=== PATIENT | female | born 1975 | race African-American/Black ===

== ENCOUNTER 2017-01-12 20:33 | Emergency (ER) | payer OTHER, MEDICAID ==
[~2017-01-12] VITALS: Ht 152.4 cm; Wt 129.1 kg
[~2017-01-12 20:33] MED LIST: AMLO-512 PO; GLIP5 PO; HYDR25TA PO; METF500T PO
[2017-01-12] MEDS ORDERED: ASPI81TA42 PO (20:44)
[2017-01-12] MEDS ORDERED: HYDROCODONE/ACETAMINOPHEN 5-325 MG TABLET PO ONE (23:00)
[2017-01-12] MEDS ORDERED: KETOROLAC TROMETHAMINE 60 MG/2 ML VIAL IM ONE (23:00)
[2017-01-12] MEDS ORDERED: CYCLOBENZAPRINE HCL 10 MG TABLET PO ONE (23:00)
[2017-01-12 23:08] VITALS: BP 144/83
== END 2017-01-12 23:17 | disposition home or self-care (01) ==
LOC: EMS 20:37
DX: S83.91XA Sprain of unspecified site of right knee, initial encounter (principal); E11.9 Type 2 diabetes mellitus without complications; I10 Essential (primary) hypertension; Z79.82 Long term (current) use of aspirin; W19.XXXA Unspecified fall, initial encounter; Y93.89 Activity, other specified; Y92.89 Other specified places as the place of occurrence of the external cause; Y99.8 Other external cause status
CPT/HCPCS: 29505; 73562; 96372; 99284; J1885

== ENCOUNTER → 2017-03-17 | Outpatient (CLI) | payer OTHER, MEDICAID ==
[~2017-03-17] MED LIST changes: +ASPI81TA42 PO; +GADOBUTROL 1 MMOL/ML 10 ML VIAL IVP ONE; -METF500T PO
== END | disposition home or self-care (01) ==
LOC: RADMN 08:42
PROVIDERS: ATTEND Family Medicine
DX: R42 Dizziness and giddiness (principal); R51 Headache
CPT/HCPCS: 70549; 70553; A9585

== ENCOUNTER 2017-03-27 17:20 | Emergency (ER) | payer OTHER, MEDICAID ==
[~2017-03-27] VITALS: Ht 154.9 cm; Wt 90.9 kg
[~2017-03-27 17:20] MED LIST changes: -GADOBUTROL 1 MMOL/ML 10 ML VIAL IVP ONE
[2017-03-27 17:32] LABS: GLUCOSE,POINT OF CARE 147 MG/DL (70-110)
[2017-03-27] MEDS ORDERED: METF10002 PO (17:49)
[2017-03-27 18:06] LABS: ANION GAP 9 mmol/L (8-16); BASOPHILS % (AUTO) 0.6 % (0.0-2.0); CALCIUM, TOTAL 9.1 mg/dL (8.8-10.5); CARBON DIOXIDE 29 mmol/L (22-29); CHLORIDE 102 mmol/L (98-107); CREATININE 0.58 mg/dL (0.60-1.30); EOSINOPHILS % (AUTO) 1.1 % (1.0-6.0); GLOMERULAR FILTR. RATE CALC > 60 mL/min (>60); HEMATOCRIT 42.6 % (36-46); HEMOGLOBIN 13.6 g/dL (12.0-16.0); LYMPHOCYTES # (AUTO) 4.8 K/uL (1.0-4.8); MEAN CORPUSCULAR HEMOGLOBIN 28.1 pg (26.0-34.0); MEAN CORPUSCULAR HGB CONC 31.9 G/dL (31.0-37.0); MEAN CORPUSCULAR VOLUME 88 fL (80-100); MONOCYTES # (AUTO) 0.7 K/uL (0.1-1.0); MONOCYTES % (AUTO) 7.1 % (2.0-9.0); NEUTROPHILS # (AUTO) 4.3 K/uL (1.8-7.7); NEUTROPHILS % (AUTO) 43.2 % (40.0-70.0); PLATELET COUNT (AUTO) 355 K/uL (150-450); POTASSIUM 3.7 mmol/L (3.5-5.1); RED BLOOD CELL COUNT(AUTO) 4.83 MIL/uL (4.00-5.20); RED CELL DISTRIBUTION WIDTH 13.1 % (11.5-14.5); SODIUM SERUM 140 mmol/L (136-145); UREA NITROGEN, BLOOD 8 mg/dL (7-18)
[2017-03-27 18:12] LABS: ALANINE AMINOTRANSFERASE 26 U/L (12-78); ALBUMIN 3.6 g/dL (3.4-5.0); ASPARTATE AMINOTRANSFERASE 11 U/L (15-37); BILIRUBIN,TOTAL 0.3 mg/dL (0.1-1.0); TOTAL PROTEIN, SERUM 7.6 g/dL (6.4-8.2)
[2017-03-27 19:20] LABS: ADD UA MICROSCOPIC NO; APPEARANCE,URINE CLEAR (CLEAR); GLUCOSE, URINE (UA) NEGATIVE (NEGATIVE); KETONES,URINE NEGATIVE (NEGATIVE); LEUKOCYTE ESTERASE ,URINE NEGATIVE (NEGATIVE); OCCULT BLOOD,URINE NEGATIVE (NEGATIVE); PH,URINE 5.5 (5.0-8.0); PROTEIN,URINE NEGATIVE (NEGATIVE)
[2017-03-27] MEDS ORDERED: KETOROLAC TROMETHAMINE 30 MG/ML VIAL IVP ONE (19:45)
[2017-03-27] MEDS ORDERED: ONDANSETRON HCL 4 MG/2 ML VIAL IVP ONE (19:45)
[2017-03-27] MEDS ORDERED: MORPHINE SULFATE 4 MG/ML SYRINGE IVP ONE (19:45)
[2017-03-27] MEDS ORDERED: HYDROmorphone 2 MG/ML SYRINGE IVP ONE (21:30)
[2017-03-27 22:16] VITALS: BP 140/92
== END 2017-03-27 22:19 | disposition home or self-care (01) ==
LOC: EMS 17:21
DX: N83.201 Unspecified ovarian cyst, right side (principal); I10 Essential (primary) hypertension; E11.9 Type 2 diabetes mellitus without complications
CPT/HCPCS: 36415; 76856; 80053; 81003; 82962; 83690; 85025; 96374; 96375; 99285; J1170; J1885; J2270; J2405

== ENCOUNTER 2017-05-22 19:05 | Emergency (ER) | payer OTHER, MEDICAID ==
[~2017-05-22] VITALS: Ht 152.4 cm; Wt 83.6 kg
[~2017-05-22 19:05] MED LIST changes: +METF10002 PO
[2017-05-22] MEDS ORDERED: KETOROLAC TROMETHAMINE 30 MG/ML VIAL IVP ONE (22:15)
[2017-05-22] MEDS ORDERED: HYDROmorphone 2 MG/ML SYRINGE IVP ONE (22:15)
[2017-05-22] MEDS ORDERED: ONDANSETRON HCL 4 MG/2 ML VIAL IVP ONE (22:15)
[2017-05-22 22:38] LABS: BASOPHILS % (AUTO) 0.2 % (0.0-2.0); EOSINOPHILS % (AUTO) 0.6 % (1.0-6.0); HEMATOCRIT 40.9 % (36-46); HEMOGLOBIN 13.6 g/dL (12.0-16.0); LYMPHOCYTES # (AUTO) 3.3 K/uL (1.0-4.8); LYMPHOCYTES % (AUTO) 32.8 % (22.0-44.0); MEAN CORPUSCULAR HEMOGLOBIN 29.1 pg (26.0-34.0); MEAN CORPUSCULAR HGB CONC 33.3 G/dL (31.0-37.0); MEAN CORPUSCULAR VOLUME 87 fL (80-100); MONOCYTES # (AUTO) 0.2 K/uL (0.1-1.0); NEUTROPHILS # (AUTO) 6.5 K/uL (1.8-7.7); NEUTROPHILS % (AUTO) 64.4 % (40.0-70.0); PLATELET COUNT (AUTO) 366 K/uL (150-450); RED BLOOD CELL COUNT(AUTO) 4.68 MIL/uL (4.00-5.20); RED CELL DISTRIBUTION WIDTH 13.4 % (11.5-14.5); WHITE BLOOD COUNT (AUTO) 10.1 K/uL (4.5-11.0)
[2017-05-22 22:51] LABS: ANION GAP 8 mmol/L (8-16); CALCIUM, TOTAL 8.7 mg/dL (8.8-10.5); CARBON DIOXIDE 28 mmol/L (22-29); CHLORIDE 100 mmol/L (98-107); CREATININE 0.78 mg/dL (0.60-1.30); GLOMERULAR FILTR. RATE CALC > 60 mL/min (>60); POTASSIUM 3.7 mmol/L (3.5-5.1); SODIUM SERUM 136 mmol/L (136-145); UREA NITROGEN, BLOOD 9 mg/dL (7-18)
[2017-05-23 00:01] VITALS: BP 166/113
== END 2017-05-23 01:16 | disposition home or self-care (01) ==
LOC: EMS 19:07
DX: N83.201 Unspecified ovarian cyst, right side (principal); E11.65 Type 2 diabetes mellitus with hyperglycemia; I10 Essential (primary) hypertension; G43.909 Migraine, unspecified, not intractable, without status migrainosus; Z87.442 Personal history of urinary calculi; Z90.710 Acquired absence of both cervix and uterus
CPT/HCPCS: 36415; 76856; 80048; 84703; 85025; 96374; 96375; 99285; J1170; J1885; J2405

== ENCOUNTER 2017-06-22 21:31 | Emergency (ER) | payer OTHER, MEDICAID ==
[~2017-06-22] VITALS: Ht 157.5 cm; Wt 814.0 kg
[~2017-06-22 21:31] MED LIST changes: -AMLO-512 PO; -ASPI81TA42 PO; -GLIP5 PO; -HYDR25TA PO
[2017-06-22] MEDS ORDERED: MORPHINE SULFATE 4 MG/ML SYRINGE IVP ONE (22:15)
[2017-06-22] MEDS ORDERED: SODIUM CHLORIDE 0.9% 1,000 ML IV ONE (22:15)
[2017-06-22] MEDS ORDERED: ONDANSETRON HCL 4 MG/2 ML VIAL IVP ONE (22:15)
[2017-06-22 22:41] LABS: BASOPHILS % (AUTO) 0.6 % (0.0-2.0); EOSINOPHILS % (AUTO) 0.4 % (1.0-6.0); HEMATOCRIT 39.9 % (36-46); HEMOGLOBIN 13.5 g/dL (12.0-16.0); LYMPHOCYTES # (AUTO) 3.9 K/uL (1.0-4.8); LYMPHOCYTES % (AUTO) 45.6 % (22.0-44.0); MEAN CORPUSCULAR HEMOGLOBIN 29.4 pg (26.0-34.0); MEAN CORPUSCULAR HGB CONC 33.9 G/dL (31.0-37.0); MEAN CORPUSCULAR VOLUME 87 fL (80-100); MONOCYTES # (AUTO) 0.8 K/uL (0.1-1.0); MONOCYTES % (AUTO) 9.8 % (2.0-9.0); NEUTROPHILS # (AUTO) 3.7 K/uL (1.8-7.7); NEUTROPHILS % (AUTO) 43.6 % (40.0-70.0); PLATELET COUNT (AUTO) 340 K/uL (150-450); RED CELL DISTRIBUTION WIDTH 13.7 % (11.5-14.5); WHITE BLOOD COUNT (AUTO) 8.6 K/uL (4.5-11.0)
[2017-06-22 22:51] LABS: ANION GAP 9 mmol/L (8-16); CARBON DIOXIDE 27 mmol/L (22-29); CHLORIDE 102 mmol/L (98-107); CREATININE 0.78 mg/dL (0.60-1.30); GLOMERULAR FILTR. RATE CALC > 60 mL/min (>60); POTASSIUM 3.3 mmol/L (3.5-5.1); SODIUM SERUM 138 mmol/L (136-145); UREA NITROGEN, BLOOD 7 mg/dL (7-18)
[2017-06-22 22:57] LABS: ALANINE AMINOTRANSFERASE 21 U/L (12-78); ALBUMIN 3.4 g/dL (3.4-5.0); ASPARTATE AMINOTRANSFERASE 11 U/L (15-37); BILIRUBIN,TOTAL 0.4 mg/dL (0.1-1.0); TOTAL PROTEIN, SERUM 7.1 g/dL (6.4-8.2)
[2017-06-23 00:24] LABS: APPEARANCE,URINE CLEAR (CLEAR); GLUCOSE, URINE (UA) >=1000 mg/dL (NEGATIVE); KETONES,URINE NEGATIVE (NEGATIVE); LEUKOCYTE ESTERASE ,URINE NEGATIVE (NEGATIVE); OCCULT BLOOD,URINE NEGATIVE (NEGATIVE); PROTEIN,URINE NEGATIVE (NEGATIVE)
[2017-06-23] MEDS ORDERED: MORPHINE SULFATE 4 MG/ML SYRINGE IVP ONE (00:45)
[2017-06-23 00:47] LABS: RBC,URINE 0-2 /HPF (0-2); SQUAMOUS EPITHELIAL CELL,UR Few /LPF (None Seen); WBC,URINE 0-2 /HPF (0-5)
[2017-06-23 00:49] VITALS: BP 132/71
== END 2017-06-23 01:01 | disposition home or self-care (01) ==
LOC: EMS 21:33
DX: N83.201 Unspecified ovarian cyst, right side (principal); N83.202 Unspecified ovarian cyst, left side; N70.11 Chronic salpingitis; I10 Essential (primary) hypertension; E11.9 Type 2 diabetes mellitus without complications; G43.909 Migraine, unspecified, not intractable, without status migrainosus
CPT/HCPCS: 36415; 76856; 80053; 81001; 85025; 96361; 96374; 96375; 96376; 99285; J2270 ×2; J2405; J7030

== ENCOUNTER 2017-07-27 17:41 | Emergency (ER) | payer OTHER, MEDICAID ==
[~2017-07-27] VITALS: Ht 152.4 cm; Wt 85.9 kg
[2017-07-27] MEDS ORDERED: htn PO (17:48)
[2017-07-27] MEDS ORDERED: MORPHINE SULFATE 4 MG/ML SYRINGE IVP ONE ×2 (18:45→20:30)
[2017-07-27 19:17] LABS: BASOPHILS % (AUTO) 0.4 % (0.0-2.0); EOSINOPHILS % (AUTO) 0.8 % (1.0-6.0); HEMATOCRIT 41.6 % (36-46); HEMOGLOBIN 13.9 g/dL (12.0-16.0); LYMPHOCYTES # (AUTO) 3.6 K/uL (1.0-4.8); LYMPHOCYTES % (AUTO) 44.3 % (22.0-44.0); MEAN CORPUSCULAR HEMOGLOBIN 29.3 pg (26.0-34.0); MEAN CORPUSCULAR HGB CONC 33.4 G/dL (31.0-37.0); MEAN CORPUSCULAR VOLUME 88 fL (80-100); MONOCYTES # (AUTO) 0.7 K/uL (0.1-1.0); MONOCYTES % (AUTO) 9.1 % (2.0-9.0); NEUTROPHILS # (AUTO) 3.7 K/uL (1.8-7.7); NEUTROPHILS % (AUTO) 45.4 % (40.0-70.0); PLATELET COUNT (AUTO) 319 K/uL (150-450); RED BLOOD CELL COUNT(AUTO) 4.74 MIL/uL (4.00-5.20); WHITE BLOOD COUNT (AUTO) 8.2 K/uL (4.5-11.0)
[2017-07-27 19:29] LABS: ANION GAP 9 mmol/L (8-16); CALCIUM, TOTAL 9.1 mg/dL (8.8-10.5); CARBON DIOXIDE 26 mmol/L (22-29); CHLORIDE 103 mmol/L (98-107); CREATININE 0.66 mg/dL (0.60-1.30); GLOMERULAR FILTR. RATE CALC > 60 mL/min (>60); SODIUM SERUM 138 mmol/L (136-145); UREA NITROGEN, BLOOD 9 mg/dL (7-18)
[2017-07-27 19:46] LABS: ALANINE AMINOTRANSFERASE 21 U/L (12-78); ALBUMIN 3.6 g/dL (3.4-5.0); ASPARTATE AMINOTRANSFERASE 10 U/L (15-37); BILIRUBIN,TOTAL 0.2 mg/dL (0.1-1.0); TOTAL PROTEIN, SERUM 7.3 g/dL (6.4-8.2)
[2017-07-27] MEDS ORDERED: ONDANSETRON HCL 4 MG/2 ML VIAL ONE (20:45)
[2017-07-27] MEDS ORDERED: ONDANSETRON HCL 4 MG/2 ML VIAL IVP ONE (20:45)
[2017-07-27 21:10] VITALS: BP 154/109
== END 2017-07-27 21:58 | disposition home or self-care (01) ==
LOC: EMS 17:44
DX: N83.209 Unspecified ovarian cyst, unspecified side (principal); E11.9 Type 2 diabetes mellitus without complications; I10 Essential (primary) hypertension; G43.909 Migraine, unspecified, not intractable, without status migrainosus; Z87.442 Personal history of urinary calculi
CPT/HCPCS: 36415; 76856; 80053; 83690; 84702; 85025; 96374; 96375; 96376; 99285; J2270; J2405

== ENCOUNTER 2018-01-22 18:57 | Emergency (ER) | payer OTHER, MEDICAID ==
[~2018-01-22] VITALS: Ht 152.4 cm; Wt 82.7 kg
[~2018-01-22 18:57] MED LIST changes: +htn PO
[2018-01-22] MEDS ORDERED: HYDR25TA PO (19:16)
[2018-01-22] MEDS ORDERED: FLUCONAZOLE 150 MG TABLET PO ONE (20:45)
[2018-01-22 21:52] VITALS: BP 144/89
== END 2018-01-22 21:55 | disposition home or self-care (01) ==
LOC: EMS 19:04
DX: B37.3 Candidiasis of vulva and vagina (principal); E11.9 Type 2 diabetes mellitus without complications; I10 Essential (primary) hypertension; G43.909 Migraine, unspecified, not intractable, without status migrainosus; Z87.442 Personal history of urinary calculi; Z90.710 Acquired absence of both cervix and uterus
CPT/HCPCS: 99283

== ENCOUNTER 2018-02-15 19:58 | Emergency (ER) | payer OTHER, MEDICAID ==
[~2018-02-15] VITALS: Ht 157.5 cm; Wt 80.0 kg
[~2018-02-15 19:58] MED LIST changes: +HYDR25TA PO; -METF10002 PO; -htn PO
[2018-02-15] MEDS ORDERED: OMEP10 PO (20:36)
[2018-02-15 21:06] LABS: APPEARANCE,URINE CLEAR (CLEAR); GLUCOSE, URINE (UA) 500 mg/dL (NEGATIVE); KETONES,URINE TRACE mg/dL (NEGATIVE); LEUKOCYTE ESTERASE ,URINE NEGATIVE (NEGATIVE); NITRATE,URINE NEGATIVE (NEGATIVE); OCCULT BLOOD,URINE NEGATIVE (NEGATIVE); PH,URINE 6.5 (5.0-8.0); PROTEIN,URINE TRACE (NEGATIVE)
[2018-02-15 21:10] LABS: BILIRUBIN,URINE PRELIM. POSITIVE (NEGATIVE)
[2018-02-15 21:12] LABS: BACTERIA,URINE Rare /HPF (None Seen); MUCUS,URINE Moderate LPF (None Seen); RBC,URINE None Seen /HPF (0-2); SQUAMOUS EPITHELIAL CELL,UR Many /LPF (None Seen); WBC,URINE 0-2 /HPF (0-5)
[2018-02-15 21:17] LABS: BASOPHILS % (AUTO) 1.1 % (0.0-2.0); EOSINOPHILS % (AUTO) 0.8 % (1.0-6.0); HEMATOCRIT 40.3 % (36-46); HEMOGLOBIN 13.9 g/dL (12.0-16.0); LYMPHOCYTES # (AUTO) 4.6 K/uL (1.0-4.8); LYMPHOCYTES % (AUTO) 49.8 % (22.0-44.0); MEAN CORPUSCULAR HEMOGLOBIN 29.5 pg (26.0-34.0); MEAN CORPUSCULAR HGB CONC 34.5 G/dL (31.0-37.0); MEAN CORPUSCULAR VOLUME 86 fL (80-100); MONOCYTES # (AUTO) 0.7 K/uL (0.1-1.0); NEUTROPHILS # (AUTO) 3.7 K/uL (1.8-7.7); NEUTROPHILS % (AUTO) 40.3 % (40.0-70.0); PLATELET COUNT (AUTO) 312 K/uL (150-450); RED BLOOD CELL COUNT(AUTO) 4.71 MIL/uL (4.00-5.20); RED CELL DISTRIBUTION WIDTH 13.2 % (11.5-14.5)
[2018-02-15] MEDS ORDERED: ONDANSETRON HCL 4 MG/2 ML VIAL IVP ONE (21:30)
[2018-02-15] MEDS ORDERED: KETOROLAC TROMETHAMINE 30 MG/ML VIAL IVP ONE (21:30)
[2018-02-15 21:57] LABS: ANION GAP 12 mmol/L (8-16); CALCIUM, TOTAL 8.9 mg/dL (8.8-10.5); CARBON DIOXIDE 27 mmol/L (22-29); CHLORIDE 100 mmol/L (98-107); CREATININE 0.69 mg/dL (0.60-1.30); GLOMERULAR FILTR. RATE CALC > 60 mL/min (>60); GLUCOSE,RANDOM 261 mg/dL (70-110); SODIUM SERUM 139 mmol/L (136-145); UREA NITROGEN, BLOOD 8 mg/dL (7-18)
[2018-02-15 22:04] LABS: ALANINE AMINOTRANSFERASE 17 U/L (12-78); ALBUMIN 3.4 g/dL (3.4-5.0); ALKALINE PHOSPHATASE 106 U/L (46-116); ASPARTATE AMINOTRANSFERASE 8 U/L (15-37); BILIRUBIN,TOTAL 0.3 mg/dL (0.1-1.0); LIPASE 97 U/L (73-393); TOTAL PROTEIN, SERUM 7.3 g/dL (6.4-8.2)
[2018-02-15] MEDS ORDERED: FentaNYL CITRATE-PF 100 MCG/2 ML VIAL IM ONE (22:15)
[2018-02-15] MEDS ORDERED: POTASSIUM CHLORIDE 20 MEQ ER TABLET PO ONE (22:15)
[2018-02-15 22:25] VITALS: BP 144/90
== END 2018-02-15 22:33 | disposition home or self-care (01) ==
LOC: EMS 20:00
DX: M54.5 Low back pain (principal); E87.6 Hypokalemia; E11.9 Type 2 diabetes mellitus without complications; I10 Essential (primary) hypertension; G43.909 Migraine, unspecified, not intractable, without status migrainosus; N83.209 Unspecified ovarian cyst, unspecified side; Z87.442 Personal history of urinary calculi
CPT/HCPCS: 36415; 80053; 81001; 83690; 84703; 85025; 96372; 96374; 96375; 99284; J1885; J2405; J3010

== ENCOUNTER 2018-04-17 03:04 | Emergency (ER) | payer OTHER, MEDICAID ==
[~2018-04-17] VITALS: Ht 157.5 cm; Wt 78.9 kg
[~2018-04-17 03:04] MED LIST changes: +OMEP10 PO
[2018-04-17] MEDS ORDERED: GLIP5 PO (03:13)
[2018-04-17 04:35] LABS: APPEARANCE,URINE SLIGHTLY CLOUDY (CLEAR); BILIRUBIN,URINE NEGATIVE (NEGATIVE); GLUCOSE, URINE (UA) >=1000 mg/dL (NEGATIVE); KETONES,URINE NEGATIVE (NEGATIVE); LEUKOCYTE ESTERASE ,URINE NEGATIVE (NEGATIVE); NITRATE,URINE POSITIVE (NEGATIVE); OCCULT BLOOD,URINE LARGE (NEGATIVE); PH,URINE 5.5 (5.0-8.0); PROTEIN,URINE SEE CONFIRM (NEGATIVE); UROBILINOGEN,URINE 0.2 mg/dL (<=1.0)
[2018-04-17 04:42] LABS: SULFOSALICYLIC ACID,URINE 1+ (Negative)
[2018-04-17 04:44] LABS: BACTERIA,URINE Few /HPF (None Seen); RBC,URINE 51-100 /HPF (0-2)
[2018-04-17 04:45] LABS: SQUAMOUS EPITHELIAL CELL,UR Few /LPF (None Seen)
[2018-04-17 06:15] LABS: BASOPHILS % (AUTO) 1.1 % (0.0-2.0); EOSINOPHILS % (AUTO) 0.7 % (1.0-6.0); HEMATOCRIT 39.6 % (36-46); HEMOGLOBIN 13.6 g/dL (12.0-16.0); LYMPHOCYTES # (AUTO) 3.8 K/uL (1.0-4.8); LYMPHOCYTES % (AUTO) 36.8 % (22.0-44.0); MEAN CORPUSCULAR HEMOGLOBIN 29.6 pg (26.0-34.0); MEAN CORPUSCULAR HGB CONC 34.4 G/dL (31.0-37.0); MEAN CORPUSCULAR VOLUME 86 fL (80-100); MONOCYTES # (AUTO) 0.8 K/uL (0.1-1.0); MONOCYTES % (AUTO) 7.7 % (2.0-9.0); NEUTROPHILS # (AUTO) 5.6 K/uL (1.8-7.7); NEUTROPHILS % (AUTO) 53.7 % (40.0-70.0); PLATELET COUNT (AUTO) 315 K/uL (150-450); RED BLOOD CELL COUNT(AUTO) 4.61 MIL/uL (4.00-5.20); RED CELL DISTRIBUTION WIDTH 12.8 % (11.5-14.5)
[2018-04-17] MEDS ORDERED: KETOROLAC TROMETHAMINE 60 MG/2 ML VIAL IM ONE (06:15)
[2018-04-17] MEDS ORDERED: PHENAZOPYRIDINE HCL 100 MG TABLET PO ONE (06:15)
[2018-04-17 06:24] LABS: ANION GAP 11 mmol/L (8-16); CALCIUM, TOTAL 8.7 mg/dL (8.8-10.5); CARBON DIOXIDE 27 mmol/L (22-29); CHLORIDE 101 mmol/L (98-107); CREATININE 0.77 mg/dL (0.60-1.30); GLOMERULAR FILTR. RATE CALC > 60 mL/min (>60); GLUCOSE,RANDOM 373 mg/dL (70-110); POTASSIUM 3.7 mmol/L (3.5-5.1); SODIUM SERUM 139 mmol/L (136-145); UREA NITROGEN, BLOOD 8 mg/dL (7-18)
[2018-04-17 06:30] LABS: ALANINE AMINOTRANSFERASE 37 U/L (12-78); ALBUMIN 3.6 g/dL (3.4-5.0); ALKALINE PHOSPHATASE 118 U/L (46-116); ASPARTATE AMINOTRANSFERASE 14 U/L (15-37); BILIRUBIN,TOTAL 0.3 mg/dL (0.1-1.0); TOTAL PROTEIN, SERUM 7.5 g/dL (6.4-8.2)
[2018-04-17] MEDS ORDERED: NITROFURANTOIN/NITROFURAN MAC 100 MG CAPSULE [MACROBID] PO ONE (07:45)
[2018-04-17 07:57] VITALS: BP 155/102
[2018-04-17 08:07] LABS: GLUCOSE,POINT OF CARE 307 MG/DL (70-110)
[2018-04-17] MEDS ORDERED: INSULIN REGULAR, HUMAN 100 UNITS/ML SQ ONE (08:15)
== END 2018-04-17 08:17 | disposition home or self-care (01) ==
LOC: EMS 03:05
DX: N39.0 Urinary tract infection, site not specified (principal); E11.9 Type 2 diabetes mellitus without complications; E66.9 Obesity, unspecified; I10 Essential (primary) hypertension; G43.909 Migraine, unspecified, not intractable, without status migrainosus; Z68.31 Body mass index [BMI] 31.0-31.9, adult
CPT/HCPCS: 36415; 74176; 80053; 81001; 82962; 84703; 85025; 96372; 99285; J1815; J1885

== ENCOUNTER 2018-08-27 19:30 | Emergency (ER) | payer OTHER ==
[~2018-08-27] VITALS: Ht 152.4 cm; Wt 83.0 kg
[~2018-08-27 19:30] MED LIST changes: +GLIP5 PO; -OMEP10 PO
[2018-08-27] MEDS ORDERED: METF-960 PO (19:55)
[2018-08-27] MEDS ORDERED: KETOROLAC TROMETHAMINE 60 MG/2 ML VIAL IM ONE (21:00)
[2018-08-27] MEDS ORDERED: DIAZEPAM 5 MG TABLET PO ONE (21:00)
[2018-08-27 21:49] VITALS: BP 160/103
== END 2018-08-27 22:56 | disposition home or self-care (01) ==
LOC: EMS 19:31
DX: S16.1XXA Strain of muscle, fascia and tendon at neck level, initial encounter (principal); M62.838 Other muscle spasm; M25.511 Pain in right shoulder; E11.9 Type 2 diabetes mellitus without complications; I10 Essential (primary) hypertension; G43.909 Migraine, unspecified, not intractable, without status migrainosus; Z87.442 Personal history of urinary calculi; Z90.710 Acquired absence of both cervix and uterus; Z79.84 Long term (current) use of oral hypoglycemic drugs; Z98.51 Tubal ligation status; X58.XXXA Exposure to other specified factors, initial encounter; Y93.89 Activity, other specified; Y92.89 Other specified places as the place of occurrence of the external cause; Y99.8 Other external cause status
CPT/HCPCS: 96372; 99283; J1885